=== PATIENT | male | born 1985 | race Caucasian/White ===

== ENCOUNTER 2017-08-01 11:34 | Emergency (ER) | payer BC ==
[~2017-08-01] VITALS: Ht 170.2 cm; Wt 83.9 kg
[2017-08-01] MEDS ORDERED: NKM (11:53)
[2017-08-01] MEDS ORDERED: Sodium Chloride 500ML 500 ML IV ONE (12:30)
--- NOTE | 2017-08-01 12:51 | Emergency Room Report ---
History of Present Illness General Chief Complaint: General Complaint Source: Patient Present Illness HPI 32-year-old male presents to the emergency department complaining of paresthesias throughout his body since awakening yesterday. Patient reports initial dull numbness feeling in the right side of his face on the right arm upon awakening. Patient states later that day he felt a sudden sensation down in the right thigh and then today felt the sensation migrated to the left lower leg and up to the left arm. Patient denies head injury, trauma or fall, dizziness, nausea, vomiting, facial droop, dysarthria or difficulty swallowing. Patient reports moderate caffeine intake daily. Patient states that he has not been drinking much water the last few days he denies recent upper respiratory illness, ear pain, recent travel or ill contacts. Patient reports history of stroke in his father side of the family and history of shingles in his mother's side. Reports increased thurst, denies polyuria. Patient denies pain at this time he denies loss of gross motor movements, sensation or unilateral weakness. Denies rash, diarrhea or vomiting.He denies fevers, chills , chest pain, palpitations, visual changes or sudden onset headache. No significant PmHx. Allergies: Coded Allergies: PENICILLINS (Verified Allergy, Unknown, 08/01/17) Patient History Past Medical History: see triage record Past Surgical History: none Pertinent Family History: none Reviewed Nursing Documentation: PMH: Agreed; PSxH: Agreed Nursing Documentation-PMH Past Medical History: No Stated History Review of Systems All Other Systems: negative except mentioned in HPI Physical Exam Vital Signs Date Time Temp Pulse Resp B/P (MAP) Pulse Ox O2 Delivery O2 Flow Rate FiO2 08/01/17 11:48 98.1 89 16 133/83 94 Room Air 98.1 Sp02 EP Interpretation: reviewed, normal General Appearance: no apparent distress, alert, GCS 15, non-toxic Head: normocephalic, atraumatic Eyes: bilateral eye normal inspection, bilateral eye PERRL ENT: hearing grossly normal, normal voice Neck: full range of motion Respiratory: lungs clear, normal breath sounds, speaking full sentences Cardiovascular #1: regular rate, rhythm, no edema, normal capillary refill Musculoskeletal: back normal, gait/station normal, normal range of motion, non- tender Neurologic: alert, oriented x3, responsive, motor strength/tone normal, sensory intact, normal gait, speech normal, no pronator, other - Patient has a normal neurological exam no ataxia equal detention attendant strength, no nystagmus any eyes no facial droop negative pronator drift. Patient relates with normal gait and stride. No motor weakness. Sensation is intact. , grossly normal Psychiatric: judgement/insight normal Skin: normal color, no rash, warm/dry, well hydrated Medical Decision Making PA Attestation Dr. Ann is my supervising Physician whom patient management has been discussed with. Diagnostic Impression: Primary Impression: Paresthesia ER Course 32-year-old male presents to the emergency department complaining of paresthesias throughout his body since awakening yesterday. Patient reports initial dull numbness feeling in the right side of his face on the right arm upon awakening. Patient states later that day he felt a sudden sensation down in the right thigh and then today felt the sensation migrated to the left lower leg and up to the left arm. Patient denies head injury, trauma or fall, dizziness, nausea, vomiting, facial droop, dysarthria or difficulty swallowing. Patient reports moderate caffeine intake daily. Patient states that he has not been drinking much water the last few days he denies recent upper respiratory illness, ear pain, recent travel or ill contacts. Patient reports history of stroke in his father side of the family and history of shingles in his mother's side. Reports increased thurst, denies polyuria. Patient denies pain at this time he denies loss of gross motor movements, sensation or unilateral weakness. Denies rash, diarrhea or vomiting.He denies fevers, chills , chest pain, palpitations, visual changes or sudden onset headache. No significant PmHx. Ddx considered but are not limited to uropathy, paresthesia, electrolyte imbalance, cardiac dysrhythmia, stroke, DVT, Cyanobobalamine deficiency. nerve palsy, neuritis jus to name a few. Vital signs: are WNL, pt. is afebrile H&PE are most consistent with possible electrolyte imbalance secondary to dehydration, otherwise benign intermittent paresthesia- Patient has a normal neurological exam no ataxia equal detention attendant strength, no nystagmus any eyes no facial droop negative pronator drift. Patient relates with normal gait and stride. No motor weakness. Sensation is intact. ORDERS: -CBC: unremarkable -BMP: unremarkable, glucose on the lower end, pt. given Juice. ED INTERVENTIONS: -NS IV Bolus -re-evaluation: pt. states after IV fluids he "feels much better" - D/w pt. to follow up with Neurologist if conservative treatment does not relieve symptoms or for further evaluation. DISCHARGE: At this time pt. is stable for d/c to home. Will provide printed patient care instructions, and any necessary prescriptions. Care plan and follow up instructions have been discussed with the patient prior to discharge. Labs Test 08/01/17 12:40 White Blood Count 5.4 K/UL (4.8-10.8) Red Blood Count 5.19 M/UL (4.70-6.10) Hemoglobin 16.3 G/DL (14.2-18.0) Hematocrit 45.8 % (42.0-52.0) Mean Corpuscular Volume 88 FL (80-99) Mean Corpuscular Hemoglobin 31.3 PG (27.0-31.0) Mean Corpuscular Hemoglobin Concent 35.5 G/DL (32.0-36.0) Red Cell Distribution Width 11.4 % (11.6-14.8) Platelet Count 277 K/UL (150-450) Mean Platelet Volume 7.2 FL (6.5-10.1) Neutrophils (%) (Auto) 57.5 % (45.0-75.0) Lymphocytes (%) (Auto) 32.5 % (20.0-45.0) Monocytes (%) (Auto) 7.7 % (1.0-10.0) Eosinophils (%) (Auto) 1.0 % (0.0-3.0) Basophils (%) (Auto) 1.3 % (0.0-2.0) Sodium Level 140 MMOL/L (136-145) Potassium Level 3.9 MMOL/L (3.5-5.1) Chloride Level 103 MMOL/L (98-107) Carbon Dioxide Level 28 MMOL/L (21-32) Anion Gap 9 mmol/L (5-15) Blood Urea Nitrogen 13 mg/dL (7-18) Creatinine 1.0 MG/DL (0.55-1.30) Estimat Glomerular Filtration Rate > 60 mL/min (>60) Glucose Level 88 MG/DL (74-106) Calcium Level 9.0 MG/DL (8.5-10.1) Last Vital Signs Date Time Temp Pulse Resp B/P (MAP) Pulse Ox O2 Delivery O2 Flow Rate FiO2 08/01/17 11:48 98.1 89 16 133/83 94 Room Air 98.1 Disposition: HOME, SELF-CARE Condition: Stable Referrals: NOT CHOSEN IPA/MD,REFERRING (PCP) Patient Instructions: Paresthesia, [id number] Additional Instructions: STAY HYDRATED. - Avoid excessive caffeine use. Follow up with a Primary Care Provider in 3-5 days, even if your symptoms have resolved. If your Symptoms persist Neurologist evaluation is recommended , this referral will be provided by your PCP. --Please review list of primary care clinics, if you do not already have a primary care provider Return sooner to ED if new symptoms occur, or current symptoms become worse. - Please note that this Emergency Department Report was dictated using [employer] data management manager technology software, occasionally this can lead to erroneous entry secondary to interpretation by the dictation equipment. Rosemary Nuno August 01, 2017 12:51
[2017-08-01 13:18] LABS: BASOPHILS % (AUTO) 1.3 % (0.0-2.0); HEMATOCRIT 45.8 % (42.0-52.0); HEMOGLOBIN 16.3 G/DL (14.2-18.0); LYMPHOCYTES % (AUTO) 32.5 % (20.0-45.0); MEAN CORPUSCULAR VOLUME 88 FL (80-99); MONOCYTES % (AUTO) 7.7 % (1.0-10.0); NEUTROPHILS % (AUTO) 57.5 % (45.0-75.0); PLATELET COUNT 277 K/UL (150-450); RED BLOOD COUNT 5.19 M/UL (4.70-6.10); RED CELL DISTRIBUTION WIDTH 11.4 % (11.6-14.8); WHITE BLOOD COUNT 5.4 K/UL (4.8-10.8)
[2017-08-01 13:25] LABS: ANION GAP 9 mmol/L (5-15); BLOOD UREA NITROGEN 13 mg/dL (7-18); CARBON DIOXIDE 28 MMOL/L (21-32); CHLORIDE 103 MMOL/L (98-107); POTASSIUM 3.9 MMOL/L (3.5-5.1); SODIUM 140 MMOL/L (136-145)
[2017-08-01 15:28] VITALS: BP 133/83
[2017-08-01 15:34] VITALS: BP 133/83
== END 2017-08-01 14:00 | disposition home or self-care (01) ==
LOC: EMR 12:06
DX: R20.2 Paresthesia of skin (principal); Z88.0 Allergy status to penicillin
CPT/HCPCS: 36415; 80048; 85025; 96374; 99283